=== PATIENT | male | born 1980 | race Hispanic/Latino ===

== ENCOUNTER 2018-02-07 10:31 | Emergency (ER) | payer OTHER ==
[2018-02-07 10:35] VITALS: TEMP 98.9; O2SAT 98; BMI 25.7
--- NOTE | 2018-02-07 11:04 | ED PDOC ---
HPI: General Adult History Per: Patient Additional Complaint(s): Pt. states [place] [employer] [place] and he slid down a slide. States he landed with all of his pressure on his R foot causing it to hyperdorsiflex. Since then he's had pain to the R ankle especially when he internally rotates his R hip. Denies numbness, tingling, other injury. <Nehemias Taylor - Last Filed: 02/07/18 12:16> <Cathy Nugent - Last Filed: 02/07/18 13:21> Time Seen by Provider: 02/07/18 10:42 Past Medical History Reviewed: Historical Data, Nursing Documentation, Vital Signs Vital Signs: Last Vital Signs Temp 98.9 F 02/07/18 10:35 Pulse 84 02/07/18 10:35 Resp 16 02/07/18 10:35 BP 120/76 02/07/18 10:35 Pulse Ox 98 02/07/18 10:35 - Surgical History Surgical History: No Surg Hx - Family History Family History: States: No Known Family Hx <Nehemias Taylor - Last Filed: 02/07/18 12:16> Vital Signs: Last Vital Signs Temp 98.9 F 02/07/18 10:35 Pulse 79 02/07/18 12:44 Resp 18 02/07/18 12:44 BP 126/72 02/07/18 12:44 Pulse Ox 98 02/07/18 12:44 <Cathy Nugent - Last Filed: 02/07/18 13:21> - Allergies Allergies/Adverse Reactions: Allergies Allergy/AdvReac Type Severity Reaction Status Date / Time No Known Allergies Allergy Verified 02/07/18 10:56 Review of Systems ROS Statement: Except As Marked, All Systems Reviewed And Found Negative <Nehemias Taylor - Last Filed: 02/07/18 12:16> Physical Exam - Physical Exam Appears: Positive for: Well, Non-toxic, No Acute Distress Skin: Positive for: Normal Color, Warm. Negative for: Rash Eye Exam: Positive for: Normal appearance Pulses-Dorsalis Pedis (L): 2+ Pulses-Dorsalis Pedis (R): 2+ Extremity: Positive for: Other (R ankle/foot: no tenderness, swelling, deformity, break in skin integrity; no achilles tendon tenderness or deformity; Negative Bansal's test b/l) <Nehemias Taylor - Last Filed: 02/07/18 12:16> - ECG O2 Sat by Pulse Oximetry: 98 - Progress ED Course And Treament: L ankle x-ray: no fx Pt. evaluated by [facility] resident, who spoke with Dr. Castle and cleared pt. for out pt f/u. States pt. can be wrapped in nguyen dressing. Nguyen dressing applied by PA. Crutches provided. <Nehemias Taylor - Last Filed: 02/07/18 12:16> Disposition - Patient ED Disposition Is Patient to be Admitted: No - Disposition Disposition: Routine/Home Disposition Time: 12:18 <Nehemias Taylor - Last Filed: 02/07/18 12:16> <Cathy Nugent - Last Filed: 02/07/18 13:21> - Clinical Impression Clinical Impression: Ankle sprain - Disposition Referrals: Kaushal Rebollar MD [Primary Care Provider] - Shlomo Castle MD [Staff Provider] - Condition: STABLE Additional Instructions: FOLLOW UP WITH DR. CASTLE FOR FURTHER EVALUATION. MELODIE LEVY, thank you for letting us take care of you today. Your provider was Cathy Nugent MD and you were treated for FALL INJURY:LT FOOT. The emergency medical care you received today was directed at your acute symptoms. If you were prescribed any medication, please fill it and take as directed. It may take several days for your symptoms to resolve. Return to the Emergency Department if your symptoms worsen, do not improve, or if you have any other problems. Please contact your doctor or call one of the physicians/clinics you have been referred to that are listed on the Patient Visit Information form that is included in your discharge packet. Bring any paperwork you were given at discharge with you along with any medications you are taking to your follow up visit. Our treatment cannot replace ongoing medical care by a primary care provider outside of the emergency department. Thank you for allowing the [facility] team to be part of your care today. If you had an X-Ray or CT scan: A Radiologist will review the ED reading if any change in treatment is needed we will contact you. If you had a blood, urine, or wound culture: It will take several days for the results, if any change in treatment is needed we will contact you. If you had an STI test: It will take 48 hours for the results. Please call after 1 week if you have not heard back. Instructions: Ankle Sprain (DC) Forms: [employer] (Ugandan), [facility] ED School/Work Excuse Print Language: HONDURAN Addendum Addendum: 02/07/18 13:21 Reviewed chart. Agree with PA assessment and plan. <Cathy Nugent - Last Filed: 02/07/18 13:21>
[2018-02-07 12:44] VITALS: BP 126/72; PULSE 79; RESP 18
--- NOTE | 2018-02-07 22:00 | RAD ---
Date of service: 02/07/2018 PROCEDURE: Right Ankle Radiographs. HISTORY: trauma COMPARISON: None FINDINGS: BONES: Normal. No fracture. JOINTS: Normal. No osteoarthritis. Ankle mortise maintained. Talar dome intact SOFT TISSUES: Normal. OTHER FINDINGS: None. IMPRESSION: No evidence of acute fracture or dislocation P
== END 2018-02-07 12:34 | disposition home or self-care (01) ==
LOC: H.ER 10:31 → MERGE 10:31 → H.ER 12:34
DX: S93.401A Sprain of unspecified ligament of right ankle, initial encounter (principal); Y93.02 Activity, running